=== PATIENT | female | born 1945 | race Hispanic/Latino ===

== ENCOUNTER 2025-01-08 06:01 | Day surgery (SDC) | payer OTHER ==
[2025-01-06 10:46] VITALS: BP 140/58; PULSE 63; RESP 18; TEMP 97.3
[2025-01-06 10:53] LABS: IMMATURE GRANULOCYTE ABSOLUTE 0.03 K/uL (0-1); NUCLEATED RED BLOOD CELLS 0.0 % (0.0-0.19); PLATELET COUNT (AUTO) 146 K/uL (130-400); RED BLOOD CELL COUNT(AUTO) 4.37 MIL/uL (4.00-5.50); RED CELL DISTRIBUTION WIDTH 13.6 % (11.0-15.5); WHITE BLOOD COUNT (AUTO) 6.6 K/uL (4.8-10.8)
[2025-01-06 11:01] LABS: CREATININE 1.0 mg/dL (0.5-1.0); GLOMERULAR FILTR. RATE CALC 57.0 mL/min (>90); GLUCOSE,RANDOM 76.0 mg/dL (70-105); SODIUM SERUM 142.0 mmol/L (136-145); UREA NITROGEN, BLOOD 18.0 mg/dL (7-18)
--- NOTE | 2025-01-06 11:04 | EKG ---
[facility] Test Date: 2025-01-06 Test Time: 10:35:07 Pat Name: ANNELISE NORIEGA Department: [facility] Room: Gender: F Car Lubricator: [id number] : 1945 Requested By: GINNA MCCULLOUGH Order Number: [id number] Reading MD: Jatin Hudson Measurements Intervals [place] Rate: 58 P: 20 UT: 167 QRS: -21 QRSD: 78 T: 16 QT: 431 QTc: 423 Interpretive Statements Sinus rhythm Low voltage, precordial leads Consider anterior infarct Compared to ECG 05/09/2017 05:24:50 Sinus bradycardia no longer present Poor R-wave progression no longer present Myocardial infarct finding still present Electronically Signed On 01-07-2025 00:04:16 CDT by Jatin Hudson Please click the below link to view image of tracing.
[2025-01-06 11:06] LABS: INR 1.19 (0.85-1.15)
[2025-01-08] VITALS (17 sets, daily range): BP systolic 133–151; BP diastolic 55–69; PULSE 49–68; RESP 13–17; TEMP 96.9–97.3
[~2025-01-08] VITALS: Ht 144.8 cm; Wt 69.4 kg
[~2025-01-08 06:01] MED LIST: CHOL100046 PO; FISH OIL PO; HYDR12.54 PO; OMEGA PO; OMEP20CA12 PO; PRAV10TA37 PO
[2025-01-08] MEDS: LACTATED RINGERS 1000ML 1,000 ML IV ONE (06:45)
[2025-01-08] MEDS ORDERED: MIDAZOLAM HCL 1 MG/ML 2ML VIAL ONE (08:02)
[2025-01-08] MEDS ORDERED: SUCCINYLCHOLINE CHLORIDE 20 MG/ML 10 ML VIAL ONE (08:02)
[2025-01-08] MEDS ORDERED: GLYCOPYRROLATE 0.2 MG/ML 5 ML VIAL ONE (08:24)
--- NOTE | 2025-01-08 09:41 | OP ---
Operative Note: DATE OF PROCEDURE: 01/08/25 SURGEON: GINNA MCCULLOUGH MD WORKER'S COMPENSATION CLAIMS EXAMINER: [Please review operative record] ANESTHESIA: [General and local] ANESTHESIOLOGIST/SPORTS STATISTICIAN: [Please review operative record] PREOPERATIVE DIAGNOSIS: [Symptomatic cholelithiasis] POSTOPERATIVE DIAGNOSIS: [Symptomatic cholelithiasis, liver cirrhosis] SYNOPSIS: [Small-sized and nodular appearance of the liver. Core needle liver biopsy performed. IC green cholangiography appropriately identifying cystic duct hepatic duct and common bile duct. No ductal filling defects appreciated, no ductal dilatation that was obvious] PROCEDURE: [1. Robotic assisted laparoscopic cholecystectomy. 2. ICG green cholangiography. 3. Laparoscopic-assisted core needle liver biopsy] ESTIMATED BLOOD LOSS: [20 cc] INDICATIONS: [Patient is a 79-year-old female with chronic right upper quadrant pain, postprandially. Imaging showing gallstones. Patient continued to be symptomatic despite dietary changes in analgesics. Patient also with known liver disease. Risks, benefits, alternatives were discussed with the patient. All questions were answered. Patient agreed to proceed with surgical intervention] DESCRIPTION OF PROCEDURE: [After appropriate consent was obtained, the patient was transferred to the operating room and placed in supine position on the operating table. SCDs were placed, preop antibiotics were given. Patient underwent induction of general anesthesia, endotracheal intubation. Patient was then prepped and draped in usual sterile fashion. Time-out was performed. Through a left subcostal incision, Veress needle was inserted into the peritoneal cavity. Insufflation was allowed to 12 mmHg. Through a supraumbilical incision, 8 mm trocar and laparoscope were inserted into the peritoneal cavity using [employer]. Veress needle and its vicinity were examined with no signs of injury. Rest of my trocars were inserted with direct visualization. Patient was placed in a reverse Trendelenburg at 20. Upon evaluation of the liver, it appeared small incised, nodular. This was concerning for liver cirrhosis. We performed a laparoscopic core needle liver biopsy. One pass was obtained. The [employer] robot was docked. Upon evaluation of the gallbladder, it appeared enlarged, mildly inflamed. The fundus was grasped and retracted cephalad. The infundibulum was grasped and retracted medially and laterally in order to expose Calot's triangle. Dissection of Calot's triangle was accomplished using combination of blunt and hook electrocautery. Cystic artery was small, it was cauterized and sharply divided. Cystic duct was isolated. This was confirmed using IC green cholangiography. Hepatic duct and common bile duct were also visualized, no concerns for ductal dilation or intraductal filling defects. Once appropriately identified, the cystic duct was clipped 3 times and sharply divided with two of the clips staying behind. Gallbladder was then dissected off the gallbladder fossa using bipolar energy. Hemostasis was also achieved using the bipolar energy. Gallbladder was then placed in an Endo-Catch bag. At this time the [employer] robot was undocked. The Endo-Catch bag and gallbladder were removed through an 8 mm trocar. The fascia of this port was closed with 0 Vicryl suture through a suture Passer. Final inspection revealed adequate hemostasis, no concerns for leakage. Counts were correct at the end of the case. Abdomen was deflated, incisions were closed with 4-0 Monocryl. Dermabond was applied over the incisions. Patient tolerated the procedure well. Transferred to recovery in a good condition.] GINNA MCCULLOUGH MD Jan 08, 2025 09:41
--- NOTE | 2025-01-08 09:44 | DS ---
Discharge Summary Hospital Course Patient is a 79-year-old female who was admitted from the outpatient setting for elective robotic assisted laparoscopic cholecystectomy the two symptomatic cholelithiasis. Intraoperative the patient was found to have liver cirrhosis. Core needle liver biopsy was also obtained at the same time of the procedure. Patient tolerated the procedure well. No major concerns at this time. Patient remains hemodynamically stable, afebrile. Normal sinus rhythm. Aerating well on 2 L nasal cannula. Abdomen is benign, incisions clean dry and intact. No rebound or guarding. Patient will be observed in recovery and discharged home per anesthesia protocol. Follow up with already in place. Postop meds have been submitted to the patient's pharmacy. Return precautions given including fevers of 101.5 or higher, worsening abdominal pain, intractable nausea and vomiting. Patient will advance diet as tolerated, no lifting more than 20 lb for a month. GINNA MCCULLOUGH MD Jan 08, 2025 09:44
--- NOTE | 2025-01-08 11:18 | NUR ---
Full and complete discharge instructions given to Patient and Family both verbally and in writing. Explained Surgical procedure precautions and follow up.Lap [place] incision sites clean dry and intact. No evidence of bleeding, bruising or hematoma. All questions answered. PIV removed with catheter tip intact. Brother at bedside appearing supportive. W/C to POV with Brother to home
== END 2025-01-08 11:15 | disposition home or self-care (01) ==
LOC: DAH 06:01
PROVIDERS: ATTEND Surgery
DX: K80.10 Calculus of gallbladder with chronic cholecystitis without obstruction (principal); K73.9 Chronic hepatitis, unspecified; M19.90 Unspecified osteoarthritis, unspecified site; I10 Essential (primary) hypertension; E78.5 Hyperlipidemia, unspecified; E66.9 Obesity, unspecified; R94.5 Abnormal results of liver function studies; K85.00 Idiopathic acute pancreatitis without necrosis or infection; R10.11 Right upper quadrant pain; M81.0 Age-related osteoporosis without current pathological fracture; Z90.710 Acquired absence of both cervix and uterus; Z98.890 Other specified postprocedural states; Z79.899 Other long term (current) drug therapy
CPT/HCPCS: 80048; 85025; 85610; 85730; 86850; 86900; 86901; 36415; 93005; 47379; 47563; 88304; 88307; A6260; J7120 ×2; A4215 ×2; J3010 ×2; J0330; J0665 ×2; J3490 ×2; J2250; J2704; J2405 ×2; J0690 ×2; A4930; A4223; A4213; A4222; A4221; A4663; A4600